=== PATIENT | female | born 1970 | race American Indian/Alaskan Native ===

== ENCOUNTER 2019-04-28 16:21 | Emergency (ER) | payer BC ==
--- NOTE | 2019-04-28 17:02 | Event Note ---
ED Screening Note Date of service: 04/28/19 Time: 16:54 ED Screening Note: 48 y/o female comes in for rectal bleeding today only one episode. No pain, No dizziness a little light headedness. PMH. None. Taking Zyrtec steriod and mucinex. LMP 12/28/18. G0. This initial assessment/diagnostic orders/clinical plan/treatment(s) is/are subject to change based on patients health status, clinical progression and re- assessment by fellow clinical providers in the ED. Further treatment and workup at subsequent clinical providers discretion. Patient/guardian urged not to elope from the ED as their condition may be serious if not clinically assessed and managed. Initial orders include:
[2019-04-28 17:49] LABS: Basophils % (Auto) 0.6 % (0.0-1.8); Eosinophils # (Auto) 0.1 K/mm3 (0.0-0.4); Eosinophils % (Auto) 1.6 % (0.0-4.3); Hematocrit 39.3 % (30.3-42.9); Hemoglobin 13.4 gm/dl (10.1-14.3); Lymphocytes # (Auto) 1.8 K/mm3 (1.2-5.4); Mean Corpuscular HGB Conc 34 % (30-34); Mean Corpuscular Volume 97 fl (79-97); Monocytes # (Auto) 0.5 K/mm3 (0.0-0.8); Monocytes % (Auto) 7.6 % (0.0-7.3); Platelet Count 282 K/mm3 (140-440); Red Blood Count 4.05 M/mm3 (3.65-5.03); Red Cell Distribution Width 13.7 % (13.2-15.2)
[2019-04-28 18:18] LABS: Alanine Aminotransferase 32 units/L (7-56); Albumin 4.3 g/dL (3.9-5); BUN/Creatinine Ratio 16; Blood Urea Nitrogen 11 mg/dL (7-17); Calcium 9.8 mg/dL (8.4-10.2); Hemolysis Index 6
--- NOTE | 2019-04-28 21:33 | Emergency Department Report ---
HPI - General Chief Complaint: GI Bleed Time Seen by Provider: 04/28/19 16:54 - HPI HPI: 48-year-old female presents to the emergency department with a complaint of rectal bleeding that occurred just prior to arrival today. The patient had a bowel movement with loose stools and says that there was blood both on the stool and in the toilet bowl. She denies any rectal or abdominal pains. She denies any past medical history. She has not taken anything for her symptoms prior to arrival. ED Past Medical Hx - Past Medical History Previous Medical History?: No Additional medical history: Overweight, High cholesterol, Sinusitis - Surgical History Hx Cholecystectomy: Yes (01/26/19) Additional Surgical History: balloon sinuplasty, Liposuction - Social History Smoking Status: Former Smoker Substance Use Type: Alcohol - Medications Home Medications: Home Medications Medication Instructions Recorded Confirmed Last Taken Type Glycerin/Min Oil/Polycarbophil 35 gm VG DAILY #3 day 09/05/18 Unknown Rx [Replens Vaginal Applicator] L. Acidophilus/L.bulgaricus 1 each PO BID #20 tablet 09/05/18 Unknown Rx [Lactobacillus Tablet] ED Review of Systems ROS: Stated complaint: BLOOD IN STOLE Other details as noted in HPI Comment: All other systems reviewed and negative Constitutional: denies: chills, fever Respiratory: denies: cough, shortness of breath Cardiovascular: denies: chest pain, palpitations Gastrointestinal: other (rectal bleeding). denies: abdominal pain, vomiting, melena Genitourinary: denies: dysuria, discharge Musculoskeletal: denies: back pain, arthralgia Skin: denies: rash, lesions Neurological: denies: headache, weakness Physical Exam - Physical Exam Physical Exam: GENERAL: The patient is well-developed well-nourished. HENT: Normocephalic. Atraumatic. Patient has moist mucous membranes. EYES: Extraocular motions are intact. NECK: Supple. Trachea is midline. CHEST/LUNGS: Clear to auscultation. There is no respiratory distress noted. HEART/CARDIOVASCULAR: Regular. There is no tachycardia. There is no murmur. ABDOMEN: Abdomen is soft, nontender. Patient has normal bowel sounds. There is no abdominal distention. SKIN: Skin is warm and dry. NEURO: The patient is awake, alert, and oriented. The patient is cooperative. The patient has no focal neurologic deficits. The patient has normal speech. MUSCULOSKELETAL: There is no tenderness or deformity. There is no limitation range of motion. There is no evidence of acute injury. RECTAL: There is a small nonthrombosed hemorrhoid at the 6 o'clock position. No gross blood seen. There was a small amount of stool obtained that was positive on guaiac testing. ED Course - Reevaluation(s) Reevaluation #1: The rectal examination was done with nurse Terrell at bedside to interior design professional. 04/28/19 22:43 ED Medical Decision Making - Lab Data Result diagrams: 04/28/19 17:24 04/28/19 17:24 - Medical Decision Making This patient presents to the emergency Department with 1 episode of rectal bleeding that occurred with a bowel movement just prior to arrival. She denies any abdominal or rectal pain. On rectal examination there is a very small nonthrombosed hemorrhoid at the 6 position. There was a very small amount of stool that was obtained but was positive on guaiac testing. Vital signs stable throughout her records including being afebrile. Labs have been unremarkable and her hemoglobin was at 13.4. The patient has no complaints of any abdominal pain, rectal pain, back pain and therefore I did not feel that any imaging was necessary at this time. She appears safe for discharge home but has been given a referral for gastroenterology and we discussed that she may need a colonoscopy in the near future. She will return to the ER with any worsening of her symptoms or for any acute distress. - Differential Diagnosis hemorrhoids, diverticulosis, malignancy Critical Care Time: No Critical care attestation.: If time is entered above; I have spent that time in minutes in the direct care of this critically ill patient, excluding procedure time. ED Disposition Clinical Impression: Rectal bleeding Disposition: DC-01 TO HOME OR SELFCARE Is pt being admited?: No Condition: Stable Instructions: Rectal Bleeding (ED) Additional Instructions: Please follow-up with your primary care physician in the next few days. I am giving you a referral for [facility], to follow up regarding your rectal bleeding. You may need a colonoscopy in the near future. Return to the emergency Department with any worsening of your symptoms or any acute distress. Referrals: NICK ALVAREZ MD [Primary Care Provider] - 2-3 Days [facility] [Provider Group] - 2-3 Days Time of Disposition: 21:33
[2019-04-28 21:42] VITALS: BP 136/76
== END 2019-04-28 21:45 | disposition home or self-care (01) ==
LOC: ED 16:21
DX: K62.5 Hemorrhage of anus and rectum (principal); E78.00 Pure hypercholesterolemia, unspecified; Z88.6 Allergy status to analgesic agent; Z88.2 Allergy status to sulfonamides; Z88.8 Allergy status to other drugs, medicaments and biological substances; Z90.49 Acquired absence of other specified parts of digestive tract; Z98.890 Other specified postprocedural states; Z87.891 Personal history of nicotine dependence
CPT/HCPCS: 36415; 80053; 85025; 99283

== ENCOUNTER 2022-03-19 02:33 | Emergency (ER) | payer BC ==
[2022-03-19 02:44] VITALS: BP 153/73
[2022-03-19 03:24] LABS: Basophils # (Auto) 0.1 K/mm3 (0.0-0.1); Basophils % (Auto) 0.9 % (0.0-1.8); Eosinophils # (Auto) 0.3 K/mm3 (0.0-0.4); Eosinophils % (Auto) 5.1 % (0.0-4.3); Hematocrit 36.4 % (30.3-42.9); Lymphocytes # (Auto) 2.8 K/mm3 (1.2-5.4); Lymphocytes % (Auto) 44.2 % (13.4-35.0); Mean Corpuscular HGB Conc 33 % (30-34); Mean Corpuscular Volume 97 fl (79-97); Monocytes # (Auto) 0.7 K/mm3 (0.0-0.8); Monocytes % (Auto) 10.5 % (0.0-7.3); Platelet Count 325 K/mm3 (140-440); Red Blood Count 3.77 M/mm3 (3.65-5.03); Red Cell Distribution Width 13.5 % (13.2-15.2)
--- NOTE | 2022-03-19 03:27 | XRay Report ---
XR chest routine 2V INDICATION / CLINICAL INFORMATION: CHEST PAIN. COMPARISON: None available. FINDINGS: SUPPORT DEVICES: None. HEART /PULMONARY VASCULATURE: No significant abnormality. LUNGS / PLEURA: No significant pulmonary or pleural abnormality. No pneumothorax. ADDITIONAL FINDINGS: No significant additional findings. IMPRESSION: 1. No acute findings. Signer Name: Talha East MD Signed: 03/19/2022 3:22 AM Workstation Name: [id number]
[2022-03-19 03:47] LABS: Alanine Aminotransferase 36 units/L (7-56); Albumin 4.2 g/dL (3.9-5); BUN/Creatinine Ratio 13; Blood Urea Nitrogen 10 mg/dL (7-17); Calcium 9.8 mg/dL (8.4-10.2); Hemolysis Index 5
--- NOTE | 2022-03-19 17:55 | Electrocardiograph Report ---
[facility] Test Date: 2022-03-19 Test Time: 02:48:02 Pat Name: FRED RIVERA Department: Room: Gender: F Estimation Manager: NURSE : 1970 Requested By: ROMAN ARCE Order Number: [id number] Reading MD: Mila Hanley Measurements Intervals [place] Rate: 77 P: 50 [place]: 171 QRS: 28 QRSD: 77 T: 31 QT: 376 QTc: 427 Interpretive Statements Sinus rhythm No previous ECG available for comparison Electronically Signed On 03-19-2022 17:54:46 EDT by Mila Hanley
== END 2022-03-19 07:30 | disposition left against medical advice (07) ==
LOC: ED 02:33
DX: R07.9 Chest pain, unspecified (principal); Z53.21 Procedure and treatment not carried out due to patient leaving prior to being seen by health care provider
CPT/HCPCS: 36415; 71046; 80053; 84484; 85025; 93005